=== PATIENT | female | born 1940 | race Caucasian/White ===

== ENCOUNTER 2016-06-22 09:49 | Inpatient (IN) | payer MEDICARE ==
[2016-06-22] VITALS (15 sets, daily range): BP systolic 144–192; RESP 24–40; TEMP 96.8–97.3; BMI 18.0
[~2016-06-22] VITALS: Ht 149.9 cm; Wt 40.4 kg
[2016-06-22] MEDS ORDERED: METHYLPRED SOD SUCC 125 MG/2 ML VIAL ONE (10:40)
[2016-06-22] MEDS ORDERED: DUONEB INH ONE ×3 (11:28→13:30)
[2016-06-22] MEDS ORDERED: SODIUM CHLORIDE 0.9% 500 ML IV ONE (12:41)
[2016-06-22] MEDS ORDERED: OSELTAMIVIR 75 MG CAP ONE (12:41)
[2016-06-22] MEDS ORDERED: ONDANSETRON 4 MG VIAL ONE (14:27)
[2016-06-22] MEDS ORDERED: DILAUDID 1 MG/ML AMP ONE (14:28)
[2016-06-22] MEDS ORDERED: SODIUM CHLORIDE 0.9% 100 ML IV ONE (14:28)
[2016-06-22] MEDS ORDERED: NEB-ALBUTEROL 2.5 MG/3 ML INH PRN (15:30)
[2016-06-22] MEDS: DUONEB INH SCH ×3 (15:30→23:07)
[2016-06-22] MEDS ORDERED: PHARMACY TO DOSE VANCOMYCIN IV SCH (15:35)
[2016-06-22] MEDS ORDERED: SALINE FLUSH 10 ML FLUSH PRN (15:35)
[2016-06-22] MEDS: NEB-BUDESONIDE 0.5 MG INH SCH (19:04)
[2016-06-22] MEDS: NEB-BROVANA 15 MCG/2 ML INH SCH (19:04)
[2016-06-22] MEDS ORDERED: ONDANSETRON 4 MG VIAL IV PRN (20:50)
[2016-06-22] MEDS ORDERED: GUAIFENESIN ER 600 MG TABCR PO SCH (21:00)
[2016-06-22] MEDS: METHYLPRED SOD SUCC 125 MG/2 ML VIAL IV SCH ×2 (22:25→23:48)
[2016-06-22] MEDS: VANCOMYCIN 500 MG in SODIUM CHLORIDE 0.9% 100 ML IV SCH (22:26)
[2016-06-22] MEDS: LEVOFLOXACIN 750 MG/150 ML 150 ML IV SCH (22:26)
[2016-06-22] MEDS: BENZONATATE 100 MG CAP PO SCH (22:27)
[2016-06-22] MEDS: ASPIRIN 81 MG CHEW TAB PO SCH (22:27)
[2016-06-22] MEDS: OMEGA 3 FATTY ACIDS 1 GM CAP PO SCH (22:27)
[2016-06-22] MEDS: ROSUVASTATIN 5 MG TAB PO SCH (22:27)
[2016-06-22] MEDS: OSELTAMIVIR 75 MG CAP PO SCH (22:28)
[2016-06-22] MEDS: SALINE FLUSH 10 ML FLUSH SCH (22:29)
[2016-06-22] MEDS: SODIUM CHLORIDE 0.9% FLUSH BAG 500 ML IV SCH (22:30)
[2016-06-23] VITALS (47 sets, daily range): BP systolic 99–197; RESP 18–44; TEMP 97.1–98.1; Ht 149.9 cm; Wt 40.4 kg
[2016-06-23] MEDS: ONDANSETRON 4 MG VIAL IV PRN ×2 (01:02→20:01)
[2016-06-23] MEDS: clonazePAM 0.5 MG TAB PO PRN ×2 (01:02→10:20)
[2016-06-23] MEDS: DUONEB INH SCH ×6 (02:56→22:43)
[2016-06-23] MEDS ORDERED: Furosemide 20 MG/2 ML VIAL IV ONE (03:30)
[2016-06-23] MEDS ORDERED: LABETALOL 100 MG/20 ML VIAL IV PUSH PRN (03:40)
[2016-06-23] MEDS: NEB-BUDESONIDE 0.5 MG INH SCH ×2 (06:35→19:44)
[2016-06-23] MEDS: NEB-BROVANA 15 MCG/2 ML INH SCH ×2 (06:35→19:44)
[2016-06-23] MEDS: BENZONATATE 100 MG CAP PO SCH ×3 (08:16→20:23)
[2016-06-23] MEDS: LEVOFLOXACIN 750 MG/150 ML 150 ML IV SCH (08:16)
[2016-06-23] MEDS: ASPIRIN 81 MG CHEW TAB PO SCH (08:16)
[2016-06-23] MEDS: OMEGA 3 FATTY ACIDS 1 GM CAP PO SCH (08:16)
[2016-06-23] MEDS: OSELTAMIVIR 75 MG CAP PO SCH ×2 (08:16→20:23)
[2016-06-23] MEDS: VANCOMYCIN 500 MG in SODIUM CHLORIDE 0.9% 100 ML IV SCH ×2 (08:17→20:02)
[2016-06-23] MEDS: METHYLPRED SOD SUCC 125 MG/2 ML VIAL IV SCH ×3 (08:18→23:39)
[2016-06-23] MEDS: SALINE FLUSH 10 ML FLUSH SCH ×2 (08:18→20:01)
[2016-06-23] MEDS: ACETAMIN/BUTALB/CAFF PO PRN ×2 (10:21→22:41)
[2016-06-23] MEDS: ACETAMINOPHEN 325 MG TAB PO PRN (14:04)
[2016-06-23] MEDS: KETOROLAC 15 MG/ML VIAL IV PRN (16:44)
[2016-06-23] MEDS ORDERED: MISSING DOSE XX ONE (19:55)
[2016-06-23] MEDS: ROSUVASTATIN 5 MG TAB PO SCH (20:23)
[2016-06-23] MEDS ORDERED: clonazePAM 0.5 MG TAB PO PRN (23:35)
[2016-06-24] VITALS (24 sets, daily range): BP systolic 106–145; RESP 17–37; TEMP 96.8–97.6
[2016-06-24] MEDS: SODIUM CHLORIDE 0.9% FLUSH BAG 500 ML IV SCH ×2 (05:07→23:11)
[2016-06-24] MEDS: ACETAMIN/BUTALB/CAFF PO PRN ×3 (06:44→22:01)
[2016-06-24] MEDS: DUONEB INH SCH ×5 (06:45→23:07)
[2016-06-24] MEDS: NEB-BROVANA 15 MCG/2 ML INH SCH ×2 (06:45→19:07)
[2016-06-24] MEDS: NEB-BUDESONIDE 0.5 MG INH SCH ×2 (06:46→19:07)
[2016-06-24] MEDS: OMEGA 3 FATTY ACIDS 1 GM CAP PO SCH (08:56)
[2016-06-24] MEDS: ASPIRIN 81 MG CHEW TAB PO SCH (08:56)
[2016-06-24] MEDS: BENZONATATE 100 MG CAP PO SCH ×3 (08:56→19:52)
[2016-06-24] MEDS: OSELTAMIVIR 75 MG CAP PO SCH ×2 (08:56→19:51)
[2016-06-24] MEDS: SALINE FLUSH 10 ML FLUSH SCH ×2 (08:57→19:47)
[2016-06-24] MEDS: METHYLPRED SOD SUCC 125 MG/2 ML VIAL IV SCH (08:57)
[2016-06-24] MEDS: LEVOFLOXACIN 750 MG/150 ML 150 ML IV SCH (08:58)
[2016-06-24] MEDS: VANCOMYCIN 500 MG in SODIUM CHLORIDE 0.9% 100 ML IV SCH ×2 (08:58→19:47)
[2016-06-24] MEDS: ONDANSETRON 4 MG VIAL IV PRN (11:11)
[2016-06-24] MEDS: KETOROLAC 15 MG/ML VIAL IV PRN ×2 (13:55→23:05)
[2016-06-24] MEDS: clonazePAM 0.5 MG TAB PO PRN (16:36)
[2016-06-24] MEDS: METHYLPRED SOD SUCC 40 MG VIAL IV SCH ×2 (16:36→23:06)
[2016-06-24] MEDS: ROSUVASTATIN 5 MG TAB PO SCH (19:51)
[2016-06-24] MEDS ORDERED: VANCOMYCIN 500 MG in SODIUM CHLORIDE 0.9% 100 ML IV ONE (22:40)
[2016-06-24] MEDS ORDERED: VANCOMYCIN 750 MG in SODIUM CHLORIDE 0.9% 250 ML IV SCH (23:00)
[2016-06-25] VITALS (12 sets, daily range): BP systolic 120–156; RESP 16–25; TEMP 95.4–98
[2016-06-25] MEDS: clonazePAM 0.5 MG TAB PO PRN ×2 (01:08→13:06)
[2016-06-25] MEDS: ONDANSETRON 4 MG VIAL IV PRN ×2 (01:09→22:28)
[2016-06-25] MEDS: ACETAMIN/BUTALB/CAFF PO PRN ×3 (05:27→18:34)
[2016-06-25] MEDS: NEB-BUDESONIDE 0.5 MG INH SCH ×2 (06:57→18:57)
[2016-06-25] MEDS: NEB-BROVANA 15 MCG/2 ML INH SCH ×2 (06:57→18:57)
[2016-06-25] MEDS: DUONEB INH SCH ×5 (06:57→23:12)
[2016-06-25] MEDS ORDERED: LABETALOL 100 MG/20 ML VIAL IV PUSH PRN (08:15)
[2016-06-25] MEDS: METHYLPRED SOD SUCC 40 MG VIAL IV SCH (09:18)
[2016-06-25] MEDS: BENZONATATE 100 MG CAP PO SCH ×3 (09:19→20:28)
[2016-06-25] MEDS: OMEGA 3 FATTY ACIDS 1 GM CAP PO SCH (09:19)
[2016-06-25] MEDS: SALINE FLUSH 10 ML FLUSH SCH ×2 (09:19→20:28)
[2016-06-25] MEDS: ASPIRIN 81 MG CHEW TAB PO SCH (09:19)
[2016-06-25] MEDS: OSELTAMIVIR 75 MG CAP PO SCH ×2 (09:19→20:28)
[2016-06-25] MEDS ORDERED: MISSING DOSE XX ONE ×2 (09:40→13:20)
[2016-06-25] MEDS: LEVOFLOXACIN 750 MG/150 ML 150 ML IV SCH (10:56)
[2016-06-25] MEDS: VANCOMYCIN 750 MG in SODIUM CHLORIDE 0.9% 250 ML IV SCH ×2 (14:10→22:29)
[2016-06-25] MEDS: ROSUVASTATIN 5 MG TAB PO SCH (20:28)
[2016-06-26 03:19] VITALS: BP_SYST 138; RESP 18; TEMP 98
[2016-06-26] MEDS: ACETAMIN/BUTALB/CAFF PO PRN ×2 (03:29→14:56)
[2016-06-26] MEDS: SODIUM CHLORIDE 0.9% FLUSH BAG 500 ML IV SCH (05:51)
[2016-06-26 07:00] VITALS: BP_SYST 150; RESP 18; TEMP 97.4
[2016-06-26] MEDS: DUONEB INH SCH ×5 (07:10→22:56)
[2016-06-26] MEDS: NEB-BROVANA 15 MCG/2 ML INH SCH ×2 (07:10→19:03)
[2016-06-26] MEDS: NEB-BUDESONIDE 0.5 MG INH SCH ×2 (07:10→19:03)
[2016-06-26] MEDS: LEVOFLOXACIN 750 MG/150 ML 150 ML IV SCH (08:11)
[2016-06-26] MEDS: BENZONATATE 100 MG CAP PO SCH ×3 (08:12→20:42)
[2016-06-26] MEDS: OSELTAMIVIR 75 MG CAP PO SCH ×2 (08:12→20:42)
[2016-06-26] MEDS: OMEGA 3 FATTY ACIDS 1 GM CAP PO SCH (08:12)
[2016-06-26] MEDS: ASPIRIN 81 MG CHEW TAB PO SCH (08:12)
[2016-06-26] MEDS: SALINE FLUSH 10 ML FLUSH SCH ×2 (08:15→20:40)
[2016-06-26] MEDS: PREDNISONE 20 MG TAB PO SCH (09:00)
[2016-06-26] MEDS: ONDANSETRON 4 MG VIAL IV PRN ×2 (10:10→21:21)
[2016-06-26] MEDS: clonazePAM 0.5 MG TAB PO PRN ×2 (10:10→20:42)
[2016-06-26 11:26] VITALS: BP_SYST 132; RESP 18; TEMP 97.2
[2016-06-26] MEDS: ACETAMINOPHEN 325 MG TAB PO PRN (12:36)
[2016-06-26] MEDS ORDERED: MISSING DOSE XX ONE (12:50)
[2016-06-26] MEDS: VANCOMYCIN 750 MG in SODIUM CHLORIDE 0.9% 250 ML IV SCH (14:57)
[2016-06-26 15:03] VITALS: BP_SYST 118; RESP 18; TEMP 97.9
[2016-06-26 20:21] VITALS: BP_SYST 107; RESP 18; TEMP 98.6
[2016-06-26] MEDS: ROSUVASTATIN 5 MG TAB PO SCH (20:42)
[2016-06-26 23:00] VITALS: BP_SYST 117; RESP 18; TEMP 98.9
[2016-06-27 03:00] VITALS: BP_SYST 128; RESP 20; TEMP 98.4
[2016-06-27] MEDS: SODIUM CHLORIDE 0.9% FLUSH BAG 500 ML IV SCH (04:08)
[2016-06-27] MEDS: ACETAMIN/BUTALB/CAFF PO PRN ×3 (04:08→23:04)
[2016-06-27 08:17] VITALS: BP_SYST 140; RESP 20
[2016-06-27] MEDS: NEB-BROVANA 15 MCG/2 ML INH SCH ×2 (08:18→19:24)
[2016-06-27] MEDS: DUONEB INH SCH ×5 (08:19→23:59)
[2016-06-27] MEDS: NEB-BUDESONIDE 0.5 MG INH SCH ×2 (08:19→19:24)
[2016-06-27] MEDS: LEVOFLOXACIN 750 MG/150 ML 150 ML IV SCH (08:41)
[2016-06-27] MEDS: ASPIRIN 81 MG CHEW TAB PO SCH (08:42)
[2016-06-27] MEDS: BENZONATATE 100 MG CAP PO SCH ×3 (08:42→19:52)
[2016-06-27] MEDS: OMEGA 3 FATTY ACIDS 1 GM CAP PO SCH (08:43)
[2016-06-27] MEDS: OSELTAMIVIR 75 MG CAP PO SCH (08:43)
[2016-06-27] MEDS: PREDNISONE 20 MG TAB PO SCH (08:43)
[2016-06-27] MEDS: SALINE FLUSH 10 ML FLUSH SCH ×2 (08:44→19:53)
[2016-06-27] MEDS: clonazePAM 0.5 MG TAB PO PRN ×2 (08:44→17:50)
[2016-06-27 11:08] VITALS: BP_SYST 102; RESP 18; TEMP 97.3
[2016-06-27 16:45] VITALS: BP_SYST 129; RESP 20; TEMP 99.1
[2016-06-27] MEDS: ROSUVASTATIN 5 MG TAB PO SCH (19:53)
[2016-06-27 20:00] VITALS: BP_SYST 120; RESP 20; TEMP 97.9
[2016-06-27 23:48] VITALS: BP_SYST 115; RESP 20; TEMP 97.1
[2016-06-28 03:39] VITALS: BP_SYST 101; RESP 18; TEMP 97
[2016-06-28] MEDS: SODIUM CHLORIDE 0.9% FLUSH BAG 500 ML IV SCH (06:00)
[2016-06-28] MEDS: NEB-BUDESONIDE 0.5 MG INH SCH ×2 (07:49→18:45)
[2016-06-28] MEDS: DUONEB INH SCH ×5 (07:49→22:58)
[2016-06-28] MEDS: NEB-BROVANA 15 MCG/2 ML INH SCH ×2 (07:49→18:45)
[2016-06-28 08:03] VITALS: BP_SYST 140; RESP 20; TEMP 97
[2016-06-28] MEDS: SALINE FLUSH 10 ML FLUSH SCH ×2 (09:23→20:46)
[2016-06-28] MEDS: clonazePAM 0.5 MG TAB PO PRN ×2 (09:24→18:00)
[2016-06-28] MEDS: PREDNISONE 20 MG TAB PO SCH (09:24)
[2016-06-28] MEDS: ASPIRIN 81 MG CHEW TAB PO SCH (09:25)
[2016-06-28] MEDS: LEVOFLOXACIN 750 MG TAB PO SCH (09:25)
[2016-06-28] MEDS: OMEGA 3 FATTY ACIDS 1 GM CAP PO SCH (09:25)
[2016-06-28] MEDS: BENZONATATE 100 MG CAP PO SCH ×3 (09:27→20:47)
[2016-06-28] MEDS: ACETAMIN/BUTALB/CAFF PO PRN ×2 (10:25→18:00)
[2016-06-28 12:31] VITALS: BP_SYST 110; RESP 20; TEMP 97
[2016-06-28 16:20] VITALS: BP_SYST 140; RESP 20; TEMP 98
[2016-06-28 19:59] VITALS: BP_SYST 132; RESP 20; TEMP 97.6
[2016-06-28] MEDS: ROSUVASTATIN 5 MG TAB PO SCH (20:47)
[2016-06-28 23:26] VITALS: BP_SYST 122; RESP 20; TEMP 97.1
[2016-06-29 04:16] VITALS: BP_SYST 126; RESP 18; TEMP 97
[2016-06-29] MEDS: SODIUM CHLORIDE 0.9% FLUSH BAG 500 ML IV SCH (05:33)
[2016-06-29] MEDS: NEB-BUDESONIDE 0.5 MG INH SCH (07:15)
[2016-06-29] MEDS: DUONEB INH SCH ×2 (07:15→11:00)
[2016-06-29] MEDS: NEB-BROVANA 15 MCG/2 ML INH SCH (07:15)
[2016-06-29 07:22] VITALS: BP_SYST 144; RESP 20; TEMP 97.3
[2016-06-29] MEDS: LEVOFLOXACIN 750 MG TAB PO SCH (08:49)
[2016-06-29] MEDS: PREDNISONE 20 MG TAB PO SCH (08:49)
[2016-06-29] MEDS: OMEGA 3 FATTY ACIDS 1 GM CAP PO SCH (08:49)
[2016-06-29] MEDS: BENZONATATE 100 MG CAP PO SCH (08:49)
[2016-06-29] MEDS: ASPIRIN 81 MG CHEW TAB PO SCH (08:49)
[2016-06-29] MEDS: SALINE FLUSH 10 ML FLUSH SCH (08:49)
[2016-06-29 09:36] VITALS: BP_SYST 144; RESP 20; TEMP 97.3
== END 2016-06-29 11:13 | disposition home health service (06) | DRG 193 ==
LOC: ENRESERVDT → ENRESERVTM → ER 09:49 → ENPENDDIS 15:44 → EMR 15:44 → 4THE 18:08 → CCU 21:07 → 4THW 06-25 07:29
PROVIDERS: ADMIT Internal Medicine; ATTEND Internal Medicine
DX: J11.00 Influenza due to unidentified influenza virus with unspecified type of pneumonia (principal); J96.22 Acute and chronic respiratory failure with hypercapnia; E43 Unspecified severe protein-calorie malnutrition; E87.2 Acidosis; J44.0 Chronic obstructive pulmonary disease with (acute) lower respiratory infection; I42.2 Other hypertrophic cardiomyopathy; E83.51 Hypocalcemia; J44.1 Chronic obstructive pulmonary disease with (acute) exacerbation; Z68.1 Body mass index [BMI] 19.9 or less, adult; E87.1 Hypo-osmolality and hyponatremia; E78.5 Hyperlipidemia, unspecified; D75.89 Other specified diseases of blood and blood-forming organs; G43.909 Migraine, unspecified, not intractable, without status migrainosus; F17.210 Nicotine dependence, cigarettes, uncomplicated; Z79.82 Long term (current) use of aspirin
CPT/HCPCS: 36415; 36600; 71010; 71020; 80048; 80053; 80202; 82553; 82607; 82746; 82803; 83605; 83880; 84439; 84443; 84484; 85025; 87040; 87804; 87880; 93005; 94640; 94660; 94799; 96361; 96375; 96376; 99223; 99232; 99233; 99239; 99291